=== PATIENT | female | born 1950 | race Hispanic/Latino ===

== ENCOUNTER 2020-09-18 10:27 | Inpatient (IN) | payer MEDICARE ==
--- NOTE | 2020-09-14 15:22 | Diagnostic Imaging Report ---
Chest, 2 views, 09/14/2020. History: Preop, knee surgery. Comparison: None available. Findings: The cardiomediastinal silhouette and pulmonary vasculature are within normal limits. There is minimal biapical pleural thickening. The lungs are clear without evidence of consolidation or pleural effusion. Degenerative changes are present throughout the thoracic spine. There are no acute osseous or soft tissue abnormalities. Impression: No acute cardiopulmonary abnormality. Signed by: José Antonio Ladd on 09/14/2020 3:19 PM
[2020-09-14 15:25] LABS: BASOPHILS % 0.2 % (0.0-1.0); EOSINOPHILS % 0.2 % (0.0-6.0); HEMATOCRIT 34.2 % (34.2-44.1); HEMOGLOBIN 11.3 g/dL (12.0-16.0); LYMPHOCYTES % 33.3 % (18.0-39.1); MEAN CORPUSCULAR HEMOGLOBIN 30.5 pg (28-32); MEAN CORPUSCULAR VOLUME 92.2 fL (81-99); MONOCYTES # (AUTO) 0.5 (0.2-0.8); MONOCYTES % 9.2 % (4.4-11.3); NEUTROPHILS # (AUTO) 3.3 (2.1-6.9); NEUTROPHILS % 56.6 % (38.7-80.0); PLATELET COUNT 212 x10e3/uL (140-360); RED BLOOD COUNT 3.71 x10e6/uL (3.6-5.1); RED CELL DISTRIBUTION WIDTH 12.2 % (11.7-14.4)
[2020-09-14 15:26] LABS: BILIRUBIN,URINE NEGATIVE (NEGATIVE); CLARITY,URINE CLEAR (CLEAR); COLOR,URINE YELLOW (YELLOW); KETONES,URINE NEGATIVE (NEGATIVE); LEUKOCYTE ESTERASE ,URINE SMALL (NEGATIVE); NITRITE,URINE NEGATIVE (NEGATIVE); PROTEIN,URINE DIPSTICK NEGATIVE (NEGATIVE); URINE UROBILINOGEN 0.2 mg/dL (0.2 - 1)
[2020-09-14 15:46] LABS: BLOOD UREA NITROGEN 13 mg/dL (7-26); BUN/CREATININE RATIO 17 (6-25); CALCIUM 9.7 mg/dL (8.4-10.2); CARBON DIOXIDE 26 mmol/L (22-29); CHLORIDE 102 mmol/L (98-107); CREATININE, SERUM 0.77 mg/dL (0.57-1.11); EST GLOMERULAR FILTRATION RATE > 60 ML/MIN (60-); GLUCOSE 89 mg/dL (74-118); SODIUM 138 mmol/L (136-145)
[~2020-09-18] VITALS: Ht 167.6 cm; Wt 94.8 kg
[~2020-09-18 10:27] MED LIST: IRBESARTAN-HCT1 EACH PO; IRON SUPPLEMENT PO; PROPRANOLOL HCL10 MG PO; VIT C PO
[2020-09-18] MEDS ORDERED: CLINDAMYCIN PHOS 900MG/ 50ML 50 ML IV ONE (12:02)
[2020-09-18] MEDS ORDERED: ACETAMINOPHEN 1000 MG/100 ML 100 ML IV ONE (14:19)
[2020-09-18] MEDS ORDERED: MIDAZOLAM HCL 2 MG/2 ML VIAL ONE (14:59)
[2020-09-18] MEDS ORDERED: FENTANYL CITRATE/PF 100MCG/2 ML INJ ONE ×2 (14:59→17:30)
[2020-09-18] MEDS ORDERED: LIDOCAINE 2%/ EPINEPHRINE 20ML MDV ONE (16:27)
[2020-09-18] MEDS ORDERED: ROPIVACAINE 0.5% 5 MG/ML 30 ML SDV ONE (16:27)
[2020-09-18] MEDS ORDERED: PROPOFOL IV EMULSION 10 MG/ML 20 ML VIAL ONE (17:26)
[2020-09-18] MEDS ORDERED: DEXAMETHASONE SOD PHOS INJ 4 MG/ML VIAL ONE (17:26)
[2020-09-18] MEDS ORDERED: GLYCOPYRROLATE INJ 0.2 MG/ML VIAL ONE (17:26)
[2020-09-18] MEDS ORDERED: SEVOFLURANE INHAL SOLN 250 ML PEN BTL ONE (17:26)
[2020-09-18] MEDS ORDERED: EPHEDRINE SULFATE INJ 50 MG/ML VIAL ONE (17:26)
[2020-09-18] MEDS ORDERED: ONDANSETRON HCL INJ 2MG/ML 2ML 2 MG/ML VIAL ONE (17:26)
[2020-09-18] MEDS ORDERED: LIDOCAINE HCL 2% LOCAL INJ 5 ML SDV VIAL INJ ONE (17:26)
[2020-09-18] MEDS ORDERED: HYDROMORPHONE 0.2MG/ML-SOD CHL 30ML PCA SYRINGE IV PRN (17:30)
[2020-09-18] MEDS ORDERED: ONDANSETRON HCL INJ 2MG/ML 2ML 2 MG/ML VIAL IV PRN (17:30)
[2020-09-18] MEDS ORDERED: NALOXONE HCL INJ 0.4 MG/ML AMP IV PRN (17:30)
[2020-09-18] MEDS ORDERED: ACETAMINOPHEN 1000 MG/100 ML IV PRN (17:30)
[2020-09-18] MEDS ORDERED: HYDROMORPHONE 0.2MG/ML-SOD CHL 30ML PCA SYRINGE IV ONE (17:56)
--- NOTE | 2020-09-18 18:04 | NUR ---
Received report from RODRI Pearson in PACU. Addendum: 09/18/20 at 1843 by Lanette Schaffer RN Patient arrived from PACU at 1820. Patient AOx3. Patient at bedside. Patient IV in right AC 20g. Patient diluadid BOARDING MOTHER pump in place and no issues. Patient has PT come and attempted to work with them. Patient oriented to room, procedures, and plan of care. Patient BOARDING MOTHER pump button in reach with call light and belongings near by.
--- NOTE | 2020-09-18 18:33 | Diagnostic Imaging Report ---
X-ray 2 views of the left knee. HISTORY: Pain. COMPARISON: None available. FINDINGS: Bone/joints: Status post total knee arthroplasty. There is a broken drill bit within the distal femur. Soft tissues: Expected postsurgical changes of the soft tissues. IMPRESSION: Status post left total knee arthroplasty with broken intraosseous drill bit. Signed by: Kyle Erickson MD on 09/18/2020 6:29 PM
--- NOTE | 2020-09-18 19:15 | NUR ---
Patient placed on CPM at 45. Tolerating. Increased to 55, tolerating. Will continue to monitor.
[2020-09-18 19:30] VITALS: BP 123/75
[2020-09-18 20:00] VITALS: BP 123/75
[2020-09-18] MEDS: SODIUM CHLORIDE 0.9% 1000ML 1,000 ML IV SCH (20:52)
[2020-09-18] MEDS: VANCOMYCIN 1GM/NS 250 ML 250 ML IV SCH (20:53)
[2020-09-18 21:00] VITALS: BP 123/75
--- NOTE | 2020-09-18 21:15 | NUR ---
CPM removed, patient tolerated well.
[2020-09-18 23:37] VITALS: BP 132/67
[2020-09-19] VITALS (7 sets, daily range): BP systolic 108–126; BP diastolic 54–101
--- NOTE | 2020-09-19 00:18 | Operative Report ---
DATE OF PROCEDURE: 09/18/2020 SURGEON: Kelvin Lorenzana MD PREOPERATIVE DIAGNOSIS: End-stage arthritis, left knee. POSTOPERATIVE DIAGNOSIS: End-stage arthritis, left knee. OPERATIONS AND PROCEDURES PERFORMED: The patient underwent left total knee arthroplasty with a gender specific flex knee, size D femoral component, size 4 tibial component, a size 20 mm tibial insert, and a 35 mm patella button. IT RISK AND ASSURANCE MANAGER: None. ANESTHESIA: General endotracheal anesthesia as well as regional block. IV FLUIDS: Per the anesthesia record. BLOOD LOSS: Approximately 75 mL. BRIEF DESCRIPTION OF THE PATIENT'S OPERATIVE PROCEDURE: Ms. Peacock was taken to the operating room and placed in supine position on the operating table. Following induction of general anesthesia as well as endotracheal intubation, the patient's left lower extremity was examined under anesthesia. She was found to have mild valgus alignment to lower extremity. She had full passive range of motion of the knee joint with a minimal effusion and patellofemoral crepitus. The patient's lower extremity was prepped and draped in standard surgical fashion. The case was begun by creating an incision along the axis of the lower extremity centered over the knee joint. This incision was carried through skin and subcutaneous tissues to the level of the extensor mechanism. Full-thickness flaps were elevated medially. The extensor mechanism was identified and incised along the medial pole of the patella. The patella was everted laterally. The fat pad was excised. Osteophytes were removed from the patella, femur, and tibia. The anterior horns of the medial and lateral meniscus were excised at this time. The anterior posterior cruciate ligaments were also sacrificed at this time. The drill was then used to access the femoral canal above the intercondylar notch. The end cutting block was then placed on the distal femur and pinned in place. A 10 mm end cut was then performed. The 4-in-1 cutting block was then affixed to the femur. At this time, a drill bit used to confirmed the anterior cut broke within the femur. This did not impact the femoral cuts. C-arm radiography confirmed that the drill bit was contained within the femur. The femoral cuts were then performed. The intercondylar notch cutting block was then placed on the femur and the intercondylar notch cut was performed. Attention was then turned to the tibia. Retractors were placed appropriately. The posterior horns of the medial and lateral meniscus were resected. The external tibial alignment guide was adjusted appropriately. The tibial cut was performed. The keel cutting device was then affixed to the tibia and a keel cut was performed. Trial femoral and tibial components were inserted into the knee and the soft tissues were balanced. Sequential inserts were placed within the tibial tray until a balanced knee was established in both flexion and extension. The patella was then reamed and a trial patella button was placed on the undersurface of the patella. The patellofemoral joint was reduced and the knee was placed through range of motion and found to be stable. The patella also tracked normally through the patellofemoral joint. All trial components were removed. The bony surfaces were prepared for cementation. Cement was mixed on the back table. The femoral, tibial, and patellar components were then cemented into place. The knee was reduced and placed in motion and again found to be stable. The tourniquet was deflated and hemostasis was obtained. The wound was copiously irrigated with bacitracin laden normal saline. The extensor mechanism was repaired in a [id number] fashion with nonabsorbable sutures. The remaining soft tissues were closed in a multilayer fashion. Sterile dressings were applied and the patient was then awakened and taken to the postanesthesia care unit in stable condition. MD ROBSON Cao/NIKI /[id number]
[2020-09-19] MEDS: SODIUM CHLORIDE 0.9% 1000ML 1,000 ML IV SCH ×2 (04:36→13:50)
[2020-09-19 04:42] LABS: HEMATOCRIT 25.1 % (34.2-44.1); HEMOGLOBIN 8.3 g/dL (12.0-16.0)
--- NOTE | 2020-09-19 05:20 | NUR ---
Patient placed on CPM at 60, tolerating will continue to monitor.
--- NOTE | 2020-09-19 05:25 | NUR ---
Patient tolerating CPM, increased to 70. Tolerating. Will continue to monitor.
--- NOTE | 2020-09-19 06:14 | Consultation ---
DATE OF CONSULTATION: REASON FOR CONSULTATION: Postop medical management of left knee arthroplasty. HISTORY OF PRESENT ILLNESS: The patient is a 70-year-old lady, who is status post left knee arthroplasty for end-stage osteoarthritis. She complains of some pain around the hip area as well as the knee, but denies any fever, chills, nausea, vomiting, headache, shortness of breath, dizziness, or chest pain. PAST MEDICAL HISTORY: Hypertension, osteoarthritis. MEDICATIONS: See MAR. ALLERGIES: IBUPROFEN, IODINE, ASPIRIN, PENICILLIN. SOCIAL HISTORY: She works part-time. She is . Nonsmoker, nondrinker. FAMILY HISTORY: High blood pressure. PHYSICAL EXAMINATION: VITAL SIGNS: Temperature 98.2, pulse 93, blood pressure 108/57, sats 96% on room air. GENERAL: She is in no apparent distress, lying in bed. NECK: Supple. CARDIOVASCULAR: Regular rate and rhythm. LUNGS: Clear to auscultation bilaterally. ABDOMEN: Good bowel sounds. Soft, nontender. EXTREMITIES: No clubbing or cyanosis. Left knee shows no seepage on her bandage. NEUROLOGIC: Nonfocal. ASSESSMENT/PLAN: 1. Left knee pain/hip pain. We will continue with pain control and start with her physical therapy. 2. Anemia. We will check a CBC. 3. Hypertension. We will continue to monitor and restart her blood pressure medicine soon. Please see hospital chart for full details. MD GWENDOLYN Shi/NIKI /[id number]
--- NOTE | 2020-09-19 06:27 | NUR ---
Patient reporting increase pain to left knee, CPM decreased to 65. Patient continues to report discomfort. CPM decreased to 60. Patient tolerating. Will continue to monitor.
--- NOTE | 2020-09-19 07:12 | NUR ---
Bedside report and walking rounds completed with oncoming nurse. Patient in bed with call light within reach. No issues or concerns noted.
--- NOTE | 2020-09-19 07:43 | NUR ---
DR MIKE OFFICE PREARRANGED FOLLOWING DISCHARGE PLAN OF:HOME [address] HOME HEALTH WITH [facility] CONFIRMED [phone] DME 3 IN ONE COMMODE AND CPM PROVIDED BY [employer] [place], I PROVIDED ROLLING WALKER WITH WHEELS. GRACE SIGNED AND ON CHART COPY LEFT WITH PATIENT GAVE CARD FOR QUESTIONS AND OR CONCERNS.
[2020-09-19] MEDS: PROPRANOLOL HCL 10 MG TAB PO SCH ×2 (08:42→15:51)
[2020-09-19] MEDS: VANCOMYCIN 1GM/NS 250 ML 250 ML IV SCH ×2 (08:42→22:39)
[2020-09-19] MEDS: RIVAROXABAN 10 MG TABLET PO SCH (08:42)
--- NOTE | 2020-09-19 09:02 | NUR ---
Patient states that she is in unbearable pain. Patient was on CPM machine last night and states that, that is the only pain relief she felt. Patient was assisted by PT to bedside chair around 0800 and has been extremely uncomfortable. Patient's x-ray post operatively was seen by this auto service writer and it reads " Status post left total knee arthroplasty with broken intraosseous drill bit". This auto service writer contacted Dr. Lorenzana nurse at the clinic who stated she had never heard of this. She stated that Dr. Lorenzana was in surgery until 1500 here at [facility], and she would be texting him immediately. She stated she would return the call to the unit to give this auto service writer an update of what he says. Patient has not stopped complaining of pain. Will continue to closely monitor. Addendum: 09/19/20 at 1641 by Lanette Schaffer RN Dr. Lorenzana returned the call and stated that he wanted a pain management doctor on the case. Pain management doctor was consulted via Dr. Clement, he consulted Dr. Calderón. Dr. Calderón ordered Fentayl patch and [place] PO. Patient still has 10/10 pain and is getting no relief.
[2020-09-19] MEDS ORDERED: KETOROLAC TROMETHAMINE 30 MG/ML VIAL IV PRN (11:15)
[2020-09-19] MEDS ORDERED: HYDROCODONE/APAP 5MG-325MG TAB PO PRN (11:30)
[2020-09-19] MEDS ORDERED: FENTANYL 25 MCG/HR PATCH TOP SCH (12:00)
--- NOTE | 2020-09-19 19:30 | NUR ---
BEDSIDE SHIFT REPORT RECEIVED FROM DAY RN. VS STABLE. PT IS ALERT AND ORINETED X3. REMAINS ON DILAUSIS PUMP. LEFT KNEE DRSG DRY AND INTACT. RT AC 20 G NS INFUSING AT 100/HR. SITE HEALTHY. LOPES TO GRAVITY- URINE CLEAR YELLOW. FENTANYL PATCH ON. ALSO RECEIVING DILAUDID TANBARK LABORER. CALL LIGHT WITHIN REACH. BED LOCKED AND IN LOW POSITION.
[2020-09-19] MEDS: DIPHENHYDRAMINE HCL 25 MG CAP PO PRN (22:19)
[2020-09-20] VITALS (12 sets, daily range): BP systolic 86–132; BP diastolic 35–68
[2020-09-20] MEDS: SODIUM CHLORIDE 0.9% 1000ML 1,000 ML IV SCH ×3 (00:30→20:41)
--- NOTE | 2020-09-20 06:00 | NUR ---
LOPES D/C ORDERED. PT TOLERATED PROCEDURE WELL.
[2020-09-20] MEDS: VANCOMYCIN 1GM/NS 250 ML 250 ML IV SCH (07:34)
[2020-09-20] MEDS: DIPHENHYDRAMINE HCL 25 MG CAP PO PRN (07:34)
[2020-09-20] MEDS: RIVAROXABAN 10 MG TABLET PO SCH (07:34)
[2020-09-20 08:08] LABS: BASOPHILS % 0.1 % (0.0-1.0); EOSINOPHILS % 0.1 % (0.0-6.0); HEMOGLOBIN 7.3 g/dL (12.0-16.0); LYMPHOCYTES # (AUTO) 1.5 (1.0-3.2); LYMPHOCYTES % 17.7 % (18.0-39.1); MEAN CORPUSCULAR HGB CONC 31.7 g/dL (31-35); MEAN CORPUSCULAR VOLUME 94.7 fL (81-99); MONOCYTES # (AUTO) 1.1 (0.2-0.8); MONOCYTES % 13.1 % (4.4-11.3); NEUTROPHILS # (AUTO) 5.6 (2.1-6.9); NEUTROPHILS % 68.6 % (38.7-80.0); PLATELET COUNT 158 x10e3/uL (140-360); RED BLOOD COUNT 2.43 x10e6/uL (3.6-5.1); RED CELL DISTRIBUTION WIDTH 12.5 % (11.7-14.4)
[2020-09-20 08:28] LABS: ALANINE AMINOTRANSFERASE 16 IU/L (0-55); ALBUMIN 3.1 g/dL (3.5-5.0); ALKALINE PHOSPHATASE 38 IU/L (40-150); BLOOD UREA NITROGEN 9 mg/dL (7-26); BUN/CREATININE RATIO 13 (6-25); CARBON DIOXIDE 22 mmol/L (22-29); CHLORIDE 104 mmol/L (98-107); CREATININE, SERUM 0.67 mg/dL (0.57-1.11); EST GLOMERULAR FILTRATION RATE > 60 ML/MIN (60-); GLUCOSE 101 mg/dL (74-118); SODIUM 134 mmol/L (136-145)
[2020-09-20] MEDS: PROPRANOLOL HCL 10 MG TAB PO SCH ×2 (08:45→16:06)
--- NOTE | 2020-09-20 09:14 | NUR ---
SPOKE WITH PT ABOUT SNF ORDER, SHE SIGNED CHOICE FOR [facility], COMPLETED PACKET, COVID FORM [facility] AND RTF, PUT WITH PACKET AND LEFT AT NURSES STATION. CONFIRMED RECEIPT OF PACKET AT FACILITY AND WAITING ON AUTH.
[2020-09-20] MEDS: KETOROLAC TROMETHAMINE 30 MG/ML VIAL IV NR ×2 (09:59→10:04)
--- NOTE | 2020-09-20 13:02 | NUR ---
SPOKE WITH DR. OLIVER REGARDING WEIGHT BEARING STATUS OF PATIENT- FULL WEIGHT BEARING FOR PHYSICAL THERAPY. DR. OLIVER MENTIONED WEIGHT BEARING STATUS INFORMATION AND PATIENT STATUS POST SURGERY IS IN A PROGRESS NOTE IN THE CHART.
--- NOTE | 2020-09-20 15:40 | NUR ---
REC'D AUTH FOR [facility] AUTH GOOD FOR 24 HRS NOTE ON FRONT OF CHART FOR DR CHRISTIANSON AND DR OLIVER STATING PT IS ACCEPTED AND AUTH EXPIRES TOMORROW BARRIERS TO SNF: FRAME WELDER CARGO UTILITY TRAILERS PUMP, HGB 7, AWAIT ORTHO TO ROUND
--- NOTE | 2020-09-20 16:07 | NUR ---
patient BP dropped to 86/35. patient was asymptomatic. waited 30 min and re-took BP. BP now 110/68. no intervention needed.
--- NOTE | 2020-09-20 16:15 | NUR ---
Dr Clement notified of BP and hgb 7.3
[2020-09-20] MEDS ORDERED: SODIUM CHLORIDE 0.9% 250ML 250 ML IV ONE (18:15)
--- NOTE | 2020-09-20 18:22 | NUR ---
dressing to left knee changed as ordered. no signs of infection. Dr Clement called and ordered to transfuse 1 unit PRBC. consent obtained.
--- OUTSIDE RECORDS SUMMARY | 2020-09-20 19:14 | XMS REPORT | Continuity of Care Document ---
Author Author [facility] t Organization [facility] Address [address] [place] [address] Phone Unavailable Care Team Providers Care Legal Entity Controller Name Role Phone Francisco Javier OLIVER Attphys Unavailable Francisco Javier OLIVER Admphys Unavailable Payers Payer Name Policy Type Policy Number Effective Date Expiration Date S ource Problems This patient has no known problems. Allergies, Adverse Reactions, Alerts Allergy Name Allergy Type Status Severity Reaction(s) Onset Date Inacti ve Date Treating Clinician Comments Source Penicillins DA Active U 2015-12-31 00:00:00 [facility] Medications This patient has no known medications. Procedures This patient has no known procedures. Results Test Description Test Time Test Comments Results Result Comments Source KNEE LEFT 1-2 VIEWS 2020-09-18 18:18:00 [facility] 1950 Sex: F [facility] [address], [place] [address] Patient Name: ANNETTE GUERRERO MR #: [id number] : 1950 Age/Sex: 70/F Req #: [id number] [facility] Physician: SALVATORE OLIVER MD Ordered by: SALVATORE OLIVER MD Report #: [id number] Location: MED/SURG Room/Bed: [facility] Procedure: [id number] DX/KNEE LEFT 1-2 VIEWS Exam Date: Exam Time: REPORT STATUS: Signed X-ray 2 views of the left knee. HISTORY: Pain. COMPARISON: None available. FINDINGS: Bone/joints: Status post total knee arthroplasty. There is a broken drill bit within the distal femur. Soft tissues: Expected postsurgical changes of the soft tissues. IMPRESSION: Status post left total knee arthroplasty with broken intraosseous drill bit. Signed by: Brayan Fields MD on 09/18/2020 6:29 PM Dictated By: BRAYAN FIELDS MD 28 Transcribed By: JONATHAN on 09/18/201828 COPY TO: SALVATORE OLIVER MD CHEST 2 VIEWS 2020-09-14 15:18:00 [facility] : 1950 Sex: F [place] [address] Patient Name: ANNETTE GUERRERO MR #: [id number] : 1950 Age/Sex: 70/F Req #: [id number] Adm Physician: Ordered by: SALVATORE OLIVER MD Report #: [id number] Location: OR Room/Bed: Procedure: [id number] DX/CHEST 2 VIEWS Exam Date: 09/14/20 Exam Time: 1455 REPORT STATUS: Signed Chest, 2 views, 09/14/2020. History: Preop, knee surgery. Comparison: None available. Findings: The cardiomediastinal silhouette and pulmonary vasculature are within normal limits. There is minimal biapical pleural thickening. The lungs are clear without evidence of consolidation or pleural effusion. Degenerative changes are present throughout the thoracic spine. There are no acute osseous or soft tissue abnormalities. Impression: No acute cardiopulmonary abnormality. Signed by: José Antonio Ladd on 09/14/2020 3:19 PM Dictated By: JOSÉ ANTONIO LADD MD 18 Transcribed By: JONATHAN on 09/14/201518 COPY TO: SALVATORE OLIVER MD - XR C-SPINE 4-5 V 2019-11-30 09:33:00 FAX: Damon Brown DO [phone] [place]: O St: REG -- Name: ANNETTE GUERRERO [facility] : 1950 Age/S: 69/F [place] Unit #: [id number] Loc: [place] [address] Phys: Damon Church DO Acct: [id number] Dis Date: Status: REG CLI PHONE #: [phone] Exam Date: 11/30/2019922 FAX #: [phone] Reason: NECK PAIN EXAMS: CPT CODE: [id number] XR C-SPINE 4-5 V 51770 HISTORY: Pain. COMPARISON: None available. Location: [facility]. 2 views of the right hand: No acute fracture or dislocation. Narrowed DIP and PIP levels. No erosive or destructive changes are noted. Intercarpal and carpometacarpal joint spaces are relatively preserved. No AVN of the lunate or the scaphoid bones. IMPRESSION: No acute fracture or dislocation. Narrowed DIP and the PIP joint spaces without erosive or destructive changes. Cervical spine series, 5 views: 2 mm anterolisthesis of C4 over C5 and retrolisthesis of C5 over C6. These appear degenerative. Narrowed disc space at C4-C5 through C6-C7 levels. Anterior osteophytes from C4 through C7 vertebral bodies. No prevertebral soft tissue swelling. Narrowed foramina bilaterally from posterior marginal osteophytes at C4-C5 and C5-C6 levels. Uncovertebral joints are narrowed. Lung apices are clear. Lateral masses are well marginated. IMPRESSION: No acute fracture. Vertebral body heights are maintained. Multilevel misalignment. Narrowed foramina at C5-C6 and C4-C5 from posterior osteophytes. at 0933 Reported and signed by: Anderson Porras M.D. CC: Damon Church DO Technologist: RT Darío(Oneal) Trnbrandon Date/Time/By: 11/30/2019 (7074) : By: [email or web address] Orig Print D/T: S: 11/30/2019 (0936) PAGE 1 Signed Report - XR HAND 2 V RT 2019-11-30 09:33:00 FAX: Abigail ChurchDamon Claros DO [phone] [place]: O St: REG -- Name: ANNETTE GUERRERO [facility] : 1950 Age/S: 69/F [address] [facility] Unit #: [id number] Loc: [place] [address] Phys: Damon Church Harlan CARIAS Acct: [id number] Dis Date: Status: REG CLI PHONE #: [phone] Exam Date: 11/30/2019922 FAX #: [phone] Reason: PAIN IN RIGHT HAND EXAMS: CPT CODE: [id number] XR HAND 2 [place] [address] HISTORY: Pain. COMPARISON: None available. Location: [facility]. 2 views of the right hand: No acute fracture or dislocation. Narrowed DIP and PIP levels. No erosive or destructive changes are noted. Intercarpal and carpometacarpal joint spaces are relatively preserved. No AVN of the lunate or the scaphoid bones. IMPRESSION: No acute fracture or dislocation. Narrowed DIP and the PIP joint spaces without erosive or destructive changes. Cervical spine series, 5 views: 2 mm anterolisthesis of C4 over C5 and retrolisthesis of C5 over C6. These appear degenerative. Narrowed disc space at C4-C5 through C6-C7 levels. Anterior osteophytes from C4 through C7 vertebral bodies. No prevertebral soft tissue swelling. Narrowed foramina bilaterally from posterior marginal osteophytes at C4-C5 and C5-C6 levels. Uncovertebral joints are narrowed. Lung apices are clear. Lateral masses are well marginated. IMPRESSION: No acute fracture. Vertebral body heights are maintained. Multilevel misalignment. Narrowed foramina at C5-C6 and C4-C5 from posterior osteophytes. at 0933 Reported and signed by: Anderson Porras M.D. CC: Damon Church DO Technologist: RT Darío(Oneal) Trnscrd Date/Time/By: 11/30/2019 (9951) : By: [email or web address] Orig Print D/T: S: 11/30/2019 (1956) PAGE 1 Signed Report
--- NOTE | 2020-09-20 19:30 | NUR ---
bedside shift report received from day rn. pt is alert and oriented x3. tele on. respirations are even and unlabored. voiding without difficulty. tolerating po well. left knee dressing dry and intact. pt remians on ns at [address] pt also using dilausis clerk entry level pump. pt is d/c to be sent to snf unit. one unit prbcs to be given during night for hgb 7.3. call light within reach. Bed in low position.
[2020-09-20] MEDS ORDERED: SODIUM CHLORIDE 0.9% 250ML 250 ML ONE (20:44)
[2020-09-20] MEDS: OXYCODONE/ACETAMINOPHEN 5-325 1 EACH TABLET PO PRN (23:31)
[2020-09-21] VITALS: BP 100/48
[2020-09-21] MEDS: VANCOMYCIN 1GM/NS 250 ML 250 ML IV SCH ×2 (03:51→10:13)
--- NOTE | 2020-09-21 04:48 | NUR ---
here - order received to d/c dilaudid fitness studies teacher. instructed to have Dr Lorenzana write order for pain pill- script to be used at SNF.b/p med on hold for today - b/p low at times.
[2020-09-21 08:41] VITALS: BP 118/66
[2020-09-21 08:45] VITALS: BP 118/66
[2020-09-21 08:50] LABS: BASOPHILS % 0.2 % (0.0-1.0); EOSINOPHILS % 0.3 % (0.0-6.0); HEMATOCRIT 24.1 % (34.2-44.1); HEMOGLOBIN 7.7 g/dL (12.0-16.0); LYMPHOCYTES # (AUTO) 1.3 (1.0-3.2); LYMPHOCYTES % 19.6 % (18.0-39.1); MEAN CORPUSCULAR HEMOGLOBIN 30.8 pg (28-32); MEAN CORPUSCULAR VOLUME 96.4 fL (81-99); MONOCYTES # (AUTO) 0.9 (0.2-0.8); MONOCYTES % 13.1 % (4.4-11.3); NEUTROPHILS # (AUTO) 4.3 (2.1-6.9); PLATELET COUNT 122 x10e3/uL (140-360); RED CELL DISTRIBUTION WIDTH 13.2 % (11.7-14.4)
[2020-09-21] MEDS: RIVAROXABAN 10 MG TABLET PO SCH (09:40)
--- NOTE | 2020-09-21 09:40 | NUR ---
ASSESSMENT: Spiritual concern Pt hopeful for improved pain management through therapy. Pt states her pain has improved in recent days. Intervention: Provided unhurried empathic listening and information on how to reach flatbed press operator, if needed. Outcome: No need to follow at this time. ZACKERY MAYNARD Director [facility] Department O: [phone]
--- NOTE | 2020-09-21 09:40 | NUR ---
Notified of Hgb 7.7. No new orders
--- NOTE | 2020-09-21 10:08 | NUR ---
aware of of 's message. Per "change fentanyl patch today and follow up on thursday. "
[2020-09-21] MEDS: OXYCODONE/ACETAMINOPHEN 5-325 1 EACH TABLET PO PRN ×2 (10:13→13:50)
[2020-09-21] MEDS ORDERED: FENTANYL 25 MCG/HR PATCH TOP ONE (11:00)
--- NOTE | 2020-09-21 11:29 | NUR ---
c/o left calf pain when working with PT. Paged to notify
[2020-09-21 12:28] VITALS: BP 110/50
--- NOTE | 2020-09-21 12:49 | NUR ---
's aware of calf pain and swelling. Orders received for doppler.
--- NOTE | 2020-09-21 12:55 | NUR ---
Report called to [facility] and given to Darline Bach LVN of patient's status.
[2020-09-21] MEDS ORDERED: ONDANSETRON HCL 4 MG ORAL DISINTEGRATING TAB PO PRN (13:45)
[2020-09-21] MEDS: DIPHENHYDRAMINE HCL 25 MG CAP PO PRN (13:50)
--- NOTE | 2020-09-21 14:38 | NUR ---
Taken via stretcher by EMS. AAOX4 to time, person, place, situation. Respirations even and unlabored. Left AC IV in place, clean, dry, and intact. Left knee dressing clean, dry, and intact. Transfer package and rx given to EMS. All personal belongings taken with patient.
== END 2020-09-21 14:38 | DRG 470 ==
LOC: OR 10:27 → INTOOBSV 17:20 → OBSVTOIN 17:20 → PACU V 17:20 → MED/SURG 18:10 → OBSVTOIN 09-20 09:26
PROVIDERS: ADMIT Specialist; ATTEND Specialist
PROC: 0SRD0J9 Replacement of Left Knee Joint with Synthetic Substitute, Cemented, Open Approach (ICD-10-PCS; principal; 2020-09-18 13:00)
PROC: 30233N1 Transfusion of Nonautologous Red Blood Cells into Peripheral Vein, Percutaneous Approach (ICD-10-PCS; 2020-09-20)
DX: M17.0 Bilateral primary osteoarthritis of knee (principal); D64.9 Anemia, unspecified; I10 Essential (primary) hypertension; Z11.59 Encounter for screening for other viral diseases; G89.18 Other acute postprocedural pain; F41.9 Anxiety disorder, unspecified
CPT/HCPCS: 36415; 71046; 76000; 80048; 80053; 80202; 81003; 85014; 85018; 85025; 86850; 86900; 86920; 93970; 96361; 97139; C1713; C1776; G0378; J1100; J1885; J2001; J2250; J2405; J2795; J3010; J3370; J7030; J7050; P9016

== ENCOUNTER → 2023-09-15 | Outpatient (RCR) | payer MEDICARE | LOC: PT 08-17 08:23 | PROVIDERS: ATTEND Orthopaedic Surgery | DX: M17.11 Unilateral primary osteoarthritis, right knee (principal); Z96.651 Presence of right artificial knee joint; Z47.1 Aftercare following joint replacement surgery; M25.561 Pain in right knee; M25.661 Stiffness of right knee, not elsewhere classified; M62.81 Muscle weakness (generalized); R26.89 Other abnormalities of gait and mobility ==

== ENCOUNTER 2023-10-05 09:51 | Outpatient (RCR) | payer MEDICARE | END 2023-10-15 | LOC: PT 09:51 | PROVIDERS: ATTEND Orthopaedic Surgery | DX: M17.11 Unilateral primary osteoarthritis, right knee (principal); Z96.651 Presence of right artificial knee joint; Z47.1 Aftercare following joint replacement surgery; M25.561 Pain in right knee; M25.661 Stiffness of right knee, not elsewhere classified; M62.81 Muscle weakness (generalized); R26.89 Other abnormalities of gait and mobility ==